=== PATIENT | female | born 1975 | race African-American/Black ===

== ENCOUNTER → 2017-10-04 | Outpatient (CLI) | payer OTHER ==
[~2017-10-04] MED LIST: HCTZ
== END | disposition home or self-care (01) ==
LOC: RADPV 12:34
PROVIDERS: ATTEND Internal Medicine Cardiovascular Disease
DX: I11.0 Hypertensive heart disease with heart failure (principal); I50.9 Heart failure, unspecified; E11.8 Type 2 diabetes mellitus with unspecified complications; E55.9 Vitamin D deficiency, unspecified; D56.5 Hemoglobin E-beta thalassemia

== ENCOUNTER 2018-07-26 15:00 | Emergency (ER) | payer OTHER ==
[~2018-07-26] VITALS: Ht 154.9 cm; Wt 68.2 kg
[2018-07-26] MEDS ORDERED: LISI1TAB11 PO (15:11)
[2018-07-26] MEDS: ASPIRIN 81 MG CHEWABLE TABLET PO ONE (16:05)
[2018-07-26] MEDS: KETOROLAC TROMETHAMINE 30 MG/ML VIAL IVP ONE (16:05)
[2018-07-26 16:20] LABS: BASOPHILS % (AUTO) 0.7 % (0.0-2.0); EOSINOPHILS % (AUTO) 0.7 % (1.0-6.0); HEMATOCRIT 38.6 % (36-46); HEMOGLOBIN 13.1 g/dL (12.0-16.0); LYMPHOCYTES # (AUTO) 1.8 K/uL (1.0-4.8); LYMPHOCYTES % (AUTO) 22.8 % (22.0-44.0); MEAN CORPUSCULAR HGB CONC 33.9 G/dL (31.0-37.0); MEAN CORPUSCULAR VOLUME 94 fL (80-100); MONOCYTES # (AUTO) 0.5 K/uL (0.1-1.0); MONOCYTES % (AUTO) 7.1 % (2.0-9.0); NEUTROPHILS # (AUTO) 5.3 K/uL (1.8-7.7); NEUTROPHILS % (AUTO) 68.7 % (40.0-70.0); PLATELET COUNT (AUTO) 240 K/uL (150-450); RED BLOOD CELL COUNT(AUTO) 4.09 MIL/uL (4.00-5.20); RED CELL DISTRIBUTION WIDTH 14.1 % (11.5-14.5)
[2018-07-26 16:31] LABS: ANION GAP 9 mmol/L (8-16); CALCIUM, TOTAL 9.3 mg/dL (8.8-10.5); CARBON DIOXIDE 27 mmol/L (22-29); CHLORIDE 102 mmol/L (98-107); GLOMERULAR FILTR. RATE CALC > 60 mL/min (>60); GLUCOSE,RANDOM 88 mg/dL (70-110); POTASSIUM 3.1 mmol/L (3.5-5.1); SODIUM SERUM 138 mmol/L (136-145); UREA NITROGEN, BLOOD 10 mg/dL (7-18)
[2018-07-26 16:37] LABS: APPEARANCE,URINE CLOUDY (CLEAR); BILIRUBIN,URINE NEGATIVE (NEGATIVE); GLUCOSE, URINE (UA) NEGATIVE (NEGATIVE); KETONES,URINE NEGATIVE (NEGATIVE); LEUKOCYTE ESTERASE ,URINE MODERATE (NEGATIVE); NITRATE,URINE NEGATIVE (NEGATIVE); OCCULT BLOOD,URINE SMALL (NEGATIVE); PROTEIN,URINE NEGATIVE (NEGATIVE); UROBILINOGEN,URINE 0.2 mg/dL (<=1.0)
[2018-07-26 16:51] LABS: B-TYPE NATRIURETIC PEPTIDE 9 pg/mL (0-100)
[2018-07-26 16:52] LABS: BACTERIA,URINE Moderate /HPF (None Seen); RBC,URINE 0-2 /HPF (0-2); SQUAMOUS EPITHELIAL CELL,UR Moderate /LPF (None Seen); WBC,URINE 26-50 /HPF (0-5)
[2018-07-26 16:56] LABS: ALANINE AMINOTRANSFERASE 36 U/L (12-78); ALBUMIN 3.9 g/dL (3.4-5.0); ALKALINE PHOSPHATASE 79 U/L (46-116); ASPARTATE AMINOTRANSFERASE 33 U/L (15-37); BILIRUBIN,TOTAL 0.5 mg/dL (0.1-1.0); CREATINE KINASE, TOTAL ONLY 459 U/L (26-192); TOTAL PROTEIN, SERUM 7.2 g/dL (6.4-8.2)
[2018-07-26 18:38] VITALS: BP 138/88
== END 2018-07-26 18:39 | disposition home or self-care (01) ==
LOC: EMS 15:01
DX: S29.011A Strain of muscle and tendon of front wall of thorax, initial encounter (principal); I10 Essential (primary) hypertension; A59.9 Trichomoniasis, unspecified; Z79.899 Other long term (current) drug therapy; X50.9XXA Other and unspecified overexertion or strenuous movements or postures, initial encounter; Y93.89 Activity, other specified; Y92.89 Other specified places as the place of occurrence of the external cause; Y99.8 Other external cause status
CPT/HCPCS: 36415; 71045; 80053; 81001; 81025; 82550; 83880; 84484; 85025; 87086; 93005; 96374; 99285; J1885

== ENCOUNTER 2019-09-16 16:26 | Emergency (ER) | payer OTHER ==
[~2019-09-16] VITALS: Ht 156.2 cm; Wt 70.5 kg
[~2019-09-16 16:26] MED LIST changes: -HCTZ; +LISI1TAB11 PO
[2019-09-16] MEDS ORDERED: IBUPROFEN 800 MG TABLET PO ONE (16:45)
[2019-09-16 19:03] VITALS: BP 189/113
== END 2019-09-16 19:38 | disposition home or self-care (01) ==
LOC: EMS 16:26
DX: M79.672 Pain in left foot (principal); I10 Essential (primary) hypertension; R20.0 Anesthesia of skin; R20.2 Paresthesia of skin; F17.210 Nicotine dependence, cigarettes, uncomplicated; F12.90 Cannabis use, unspecified, uncomplicated; Z79.899 Other long term (current) drug therapy
CPT/HCPCS: 99406

== ENCOUNTER 2021-03-10 11:34 | Emergency (ER) | payer OTHER ==
[~2021-03-10] VITALS: Ht 157.5 cm; Wt 65.5 kg
[2021-03-10 12:27] LABS: EOSINOPHILS % (AUTO) 0.6 % (1.0-6.0); HEMATOCRIT 36.6 % (36-46); HEMOGLOBIN 12.2 g/dL (12.0-16.0); LYMPHOCYTES # (AUTO) 1.5 K/uL (1.0-4.8); LYMPHOCYTES % (AUTO) 20.4 % (22.0-44.0); MEAN CORPUSCULAR HEMOGLOBIN 30.1 pg (26.0-34.0); MEAN CORPUSCULAR HGB CONC 33.2 G/dL (31.0-37.0); MEAN CORPUSCULAR VOLUME 91 fL (80-100); MONOCYTES # (AUTO) 0.6 K/uL (0.1-1.0); MONOCYTES % (AUTO) 8.9 % (2.0-9.0); NEUTROPHILS % (AUTO) 69.1 % (40.0-70.0); PLATELET COUNT (AUTO) 287 K/uL (150-450); RED BLOOD CELL COUNT(AUTO) 4.04 MIL/uL (4.00-5.20); RED CELL DISTRIBUTION WIDTH 15.6 % (11.5-14.5)
[2021-03-10 12:28] LABS: APPEARANCE,URINE CLEAR (CLEAR); GLUCOSE, URINE (UA) 100 mg/dL (NEGATIVE); KETONES,URINE TRACE mg/dL (NEGATIVE); LEUKOCYTE ESTERASE ,URINE NEGATIVE (NEGATIVE); NITRATE,URINE NEGATIVE (NEGATIVE); OCCULT BLOOD,URINE TRACE (NEGATIVE); PH,URINE 6.5 (5.0-8.0); PROTEIN,URINE POS 1+ (NEGATIVE)
[2021-03-10 12:29] LABS: BILIRUBIN,URINE PRELIM. POSITIVE (NEGATIVE)
[2021-03-10 12:32] LABS: RBC,URINE 0-2 /HPF (0-2); WBC,URINE None Seen /HPF (0-5)
[2021-03-10 12:33] LABS: BACTERIA,URINE None Seen /HPF (None Seen)
[2021-03-10 12:43] LABS: ANION GAP 11 mmol/L (8-16); CALCIUM, TOTAL 9.9 mg/dL (8.8-10.5); CARBON DIOXIDE 29 mmol/L (22-29); CHLORIDE 101 mmol/L (98-107); GLOMERULAR FILTR. RATE CALC > 60 mL/min (>60); GLUCOSE,RANDOM 106 mg/dL (70-110); POTASSIUM 3.2 mmol/L (3.5-5.1); SODIUM SERUM 141 mmol/L (136-145); UREA NITROGEN, BLOOD 13 mg/dL (7-18)
[2021-03-10 12:56] LABS: ALANINE AMINOTRANSFERASE 23 U/L (12-78); ALBUMIN 4.3 g/dL (3.4-5.0); ALKALINE PHOSPHATASE 96 U/L (46-116); ASPARTATE AMINOTRANSFERASE 25 U/L (15-37); BILIRUBIN,TOTAL 0.7 mg/dL (0.1-1.0); HCG,QUANTITATIVE < 1 mIU/mL (0-6); TOTAL PROTEIN, SERUM 8.2 g/dL (6.4-8.2)
[2021-03-10 14:26] VITALS: BP 163/90
== END 2021-03-10 14:37 | disposition home or self-care (01) ==
LOC: EMS 11:37
DX: N93.8 Other specified abnormal uterine and vaginal bleeding (principal); D21.9 Benign neoplasm of connective and other soft tissue, unspecified; I10 Essential (primary) hypertension; R61 Generalized hyperhidrosis; F17.210 Nicotine dependence, cigarettes, uncomplicated; F12.90 Cannabis use, unspecified, uncomplicated; Z79.899 Other long term (current) drug therapy
CPT/HCPCS: 76856; 80053; 81001; 84702; 85025; 99284

== ENCOUNTER 2022-07-15 17:30 | Inpatient (IN) | payer OTHER ==
[~2022-07-15] VITALS: Ht 152.4 cm; Wt 73.5 kg
[~2022-07-15 17:30] MED LIST changes: +LISI-659 PO; -LISI1TAB11 PO
[2022-07-15 19:00] VITALS: BP 119/79
[2022-07-15] MEDS ORDERED: MELATONIN 3 MG TABLET PO PRN (20:45)
[2022-07-15] MEDS ORDERED: ONDANSETRON HCL 4 MG TABLET PO PRN (20:45)
[2022-07-15] MEDS ORDERED: BACLOFEN 10 MG TABLET PO PRN (20:45)
[2022-07-15] MEDS ORDERED: ACETAMINOPHEN 325 MG TABLET PO PRN (20:45)
[2022-07-15] MEDS: ATORVASTATIN CALCIUM 40 MG TABLET PO SCH (20:55)
[2022-07-15] MEDS: SENNOSIDES 8.6 MG TABLET PO SCH (20:56)
[2022-07-15] MEDS: CLOPIDOGREL BISULFATE 75 MG TABLET PO SCH (20:56)
[2022-07-15] MEDS: DOCUSATE SODIUM 100 MG CAPSULE PO SCH (20:56)
[2022-07-15] MEDS: ETHYL ALCOHOL 62% ANTISEPTIC NASAL SANITIZER 0.6 ML AMPUL NASAL SCH (20:56)
[2022-07-16 06:13] VITALS: BP 121/82
[2022-07-16 08:05] VITALS: BP 104/67
[2022-07-16] MEDS: MULTIVITAMINS WITH MINERALS, THERAPEUTIC TABLET PO SCH (08:15)
[2022-07-16] MEDS: FOLIC ACID 1 MG TABLET PO SCH (08:15)
[2022-07-16] MEDS: ETHYL ALCOHOL 62% ANTISEPTIC NASAL SANITIZER 0.6 ML AMPUL NASAL SCH ×2 (08:15→21:03)
[2022-07-16] MEDS: NIFEdipine 60 MG ER TABLET PO SCH (08:16)
[2022-07-16] MEDS: DOCUSATE SODIUM 100 MG CAPSULE PO SCH ×2 (08:16→21:04)
[2022-07-16] MEDS: ASPIRIN 81 MG CHEWABLE TABLET PO SCH (08:16)
[2022-07-16] MEDS: LISINOPRIL 20 MG TABLET PO SCH (08:16)
[2022-07-16 09:22] LABS: BASOPHILS % (AUTO) 0.5 % (0.0-2.0); EOSINOPHILS % (AUTO) 2.8 % (1.0-6.0); HEMATOCRIT 30.4 % (36-46); HEMOGLOBIN 9.8 g/dL (12.0-16.0); LYMPHOCYTES # (AUTO) 1.1 K/uL (1.0-4.8); MEAN CORPUSCULAR HEMOGLOBIN 29.7 pg (26.0-34.0); MEAN CORPUSCULAR HGB CONC 32.2 G/dL (31.0-37.0); MEAN CORPUSCULAR VOLUME 92 fL (80-100); MONOCYTES # (AUTO) 0.7 K/uL (0.1-1.0); MONOCYTES % (AUTO) 9.7 % (2.0-9.0); NEUTROPHILS # (AUTO) 4.8 K/uL (1.8-7.7); PLATELET COUNT (AUTO) 287 K/uL (150-450)
[2022-07-16 09:53] LABS: ALANINE AMINOTRANSFERASE 27 U/L (12-78); ALBUMIN 3.3 g/dL (3.4-5.0); ALKALINE PHOSPHATASE 91 U/L (46-116); ANION GAP 7 mmol/L (8-16); ASPARTATE AMINOTRANSFERASE 26 U/L (15-37); BILIRUBIN,TOTAL 0.2 mg/dL (0.1-1.0); CALCIUM, TOTAL 8.7 mg/dL (8.8-10.5); CARBON DIOXIDE 27 mmol/L (22-29); CHLORIDE 102 mmol/L (98-107); CREATININE 1.01 mg/dL (0.60-1.30); GLOMERULAR FILTR. RATE CALC > 60 mL/min (>60); GLUCOSE,RANDOM 104 mg/dL (70-110); POTASSIUM 4.1 mmol/L (3.5-5.1); SODIUM SERUM 136 mmol/L (136-145); TOTAL PROTEIN, SERUM 6.4 g/dL (6.4-8.2); UREA NITROGEN, BLOOD 11 mg/dL (7-18)
[2022-07-16] MEDS: ENOXAPARIN SODIUM 40 MG/0.4 ML PF SYRINGE SQ SCH (11:47)
[2022-07-16 20:00] VITALS: BP 138/75
[2022-07-16] MEDS: ATORVASTATIN CALCIUM 40 MG TABLET PO SCH (21:04)
[2022-07-16] MEDS: CLOPIDOGREL BISULFATE 75 MG TABLET PO SCH (21:04)
[2022-07-16] MEDS: SENNOSIDES 8.6 MG TABLET PO SCH (21:10)
[2022-07-17] MEDS: ENOXAPARIN SODIUM 40 MG/0.4 ML PF SYRINGE SQ SCH (07:48)
[2022-07-17] MEDS: ETHYL ALCOHOL 62% ANTISEPTIC NASAL SANITIZER 0.6 ML AMPUL NASAL SCH ×2 (07:50→20:59)
[2022-07-17] MEDS: FOLIC ACID 1 MG TABLET PO SCH (07:51)
[2022-07-17] MEDS: LISINOPRIL 20 MG TABLET PO SCH (07:51)
[2022-07-17] MEDS: ASPIRIN 81 MG CHEWABLE TABLET PO SCH (07:52)
[2022-07-17] MEDS: NIFEdipine 60 MG ER TABLET PO SCH (07:53)
[2022-07-17] MEDS: DOCUSATE SODIUM 100 MG CAPSULE PO SCH ×2 (07:54→20:59)
[2022-07-17] MEDS: MULTIVITAMINS WITH MINERALS, THERAPEUTIC TABLET PO SCH (07:54)
[2022-07-17 08:05] VITALS: BP 131/74
[2022-07-17 20:44] VITALS: BP 136/75
[2022-07-17] MEDS: ATORVASTATIN CALCIUM 40 MG TABLET PO SCH (20:59)
[2022-07-17] MEDS: CLOPIDOGREL BISULFATE 75 MG TABLET PO SCH (20:59)
[2022-07-17] MEDS: SENNOSIDES 8.6 MG TABLET PO SCH (20:59)
[2022-07-18] MEDS: ETHYL ALCOHOL 62% ANTISEPTIC NASAL SANITIZER 0.6 ML AMPUL NASAL SCH ×2 (07:18→20:59)
[2022-07-18] MEDS: ASPIRIN 81 MG CHEWABLE TABLET PO SCH (07:18)
[2022-07-18] MEDS: LISINOPRIL 20 MG TABLET PO SCH (07:19)
[2022-07-18] MEDS: NIFEdipine 60 MG ER TABLET PO SCH (07:19)
[2022-07-18] MEDS: DOCUSATE SODIUM 100 MG CAPSULE PO SCH ×2 (07:19→20:58)
[2022-07-18] MEDS: MULTIVITAMINS WITH MINERALS, THERAPEUTIC TABLET PO SCH (07:19)
[2022-07-18] MEDS: FOLIC ACID 1 MG TABLET PO SCH (07:19)
[2022-07-18] MEDS: ENOXAPARIN SODIUM 40 MG/0.4 ML PF SYRINGE SQ SCH (07:20)
[2022-07-18 08:40] VITALS: BP 135/83
[2022-07-18 20:10] VITALS: BP 141/88
[2022-07-18] MEDS: ATORVASTATIN CALCIUM 40 MG TABLET PO SCH (20:59)
[2022-07-18] MEDS: CLOPIDOGREL BISULFATE 75 MG TABLET PO SCH (20:59)
[2022-07-18] MEDS: SENNOSIDES 8.6 MG TABLET PO SCH (20:59)
[2022-07-19 08:30] VITALS: BP 157/104
[2022-07-19] MEDS: MULTIVITAMINS WITH MINERALS, THERAPEUTIC TABLET PO SCH (08:41)
[2022-07-19] MEDS: FOLIC ACID 1 MG TABLET PO SCH (08:41)
[2022-07-19] MEDS: NIFEdipine 60 MG ER TABLET PO SCH (08:42)
[2022-07-19] MEDS: DOCUSATE SODIUM 100 MG CAPSULE PO SCH ×2 (08:42→20:37)
[2022-07-19] MEDS: ASPIRIN 81 MG CHEWABLE TABLET PO SCH (08:42)
[2022-07-19] MEDS: LISINOPRIL 20 MG TABLET PO SCH (08:42)
[2022-07-19] MEDS: ETHYL ALCOHOL 62% ANTISEPTIC NASAL SANITIZER 0.6 ML AMPUL NASAL SCH ×2 (08:42→20:33)
[2022-07-19] MEDS: ENOXAPARIN SODIUM 40 MG/0.4 ML PF SYRINGE SQ SCH (08:43)
[2022-07-19 11:35] VITALS: BP 150/95
[2022-07-19] MEDS ORDERED: AmLODIPine BESYLATE 5 MG TABLET PO SCH (12:00)
[2022-07-19] MEDS: ESCITALOPRAM OXALATE 10 MG TABLET PO SCH (13:15)
[2022-07-19] MEDS: BACLOFEN 10 MG TABLET PO SCH ×2 (17:10→20:32)
[2022-07-19 20:00] VITALS: BP 133/84
[2022-07-19] MEDS: ATORVASTATIN CALCIUM 40 MG TABLET PO SCH (20:32)
[2022-07-19] MEDS: CLOPIDOGREL BISULFATE 75 MG TABLET PO SCH (20:32)
[2022-07-19] MEDS: SENNOSIDES 8.6 MG TABLET PO SCH (20:38)
[2022-07-20 08:02] VITALS: BP 134/89
[2022-07-20] MEDS: MULTIVITAMINS WITH MINERALS, THERAPEUTIC TABLET PO SCH (08:05)
[2022-07-20] MEDS: ENOXAPARIN SODIUM 40 MG/0.4 ML PF SYRINGE SQ SCH (08:05)
[2022-07-20] MEDS: ASPIRIN 81 MG CHEWABLE TABLET PO SCH (08:05)
[2022-07-20] MEDS: ESCITALOPRAM OXALATE 10 MG TABLET PO SCH (08:06)
[2022-07-20] MEDS: BACLOFEN 10 MG TABLET PO SCH ×3 (08:06→20:00)
[2022-07-20] MEDS: NIFEdipine 90 MG ER TABLET PO SCH (08:06)
[2022-07-20] MEDS: LISINOPRIL 20 MG TABLET PO SCH (08:06)
[2022-07-20] MEDS: FOLIC ACID 1 MG TABLET PO SCH (08:06)
[2022-07-20] MEDS: DOCUSATE SODIUM 100 MG CAPSULE PO SCH ×2 (08:07→20:00)
[2022-07-20] MEDS: ETHYL ALCOHOL 62% ANTISEPTIC NASAL SANITIZER 0.6 ML AMPUL NASAL SCH ×2 (08:12→20:00)
[2022-07-20] MEDS: ATORVASTATIN CALCIUM 40 MG TABLET PO SCH (20:00)
[2022-07-20] MEDS: CLOPIDOGREL BISULFATE 75 MG TABLET PO SCH (20:00)
[2022-07-20] MEDS: SENNOSIDES 8.6 MG TABLET PO SCH (20:01)
[2022-07-20 21:00] VITALS: BP 143/85
[2022-07-21] MEDS: ETHYL ALCOHOL 62% ANTISEPTIC NASAL SANITIZER 0.6 ML AMPUL NASAL SCH ×2 (08:09→21:05)
[2022-07-21] MEDS: ENOXAPARIN SODIUM 40 MG/0.4 ML PF SYRINGE SQ SCH (08:09)
[2022-07-21] MEDS: LISINOPRIL 20 MG TABLET PO SCH (08:10)
[2022-07-21] MEDS: DOCUSATE SODIUM 100 MG CAPSULE PO SCH ×2 (08:10→21:03)
[2022-07-21] MEDS: BACLOFEN 10 MG TABLET PO SCH ×3 (08:10→21:04)
[2022-07-21] MEDS: NIFEdipine 90 MG ER TABLET PO SCH (08:10)
[2022-07-21] MEDS: FOLIC ACID 1 MG TABLET PO SCH (08:10)
[2022-07-21] MEDS: MULTIVITAMINS WITH MINERALS, THERAPEUTIC TABLET PO SCH (08:10)
[2022-07-21] MEDS: ESCITALOPRAM OXALATE 10 MG TABLET PO SCH (08:10)
[2022-07-21] MEDS: ASPIRIN 81 MG CHEWABLE TABLET PO SCH (08:11)
[2022-07-21 12:05] VITALS: BP 140/90
[2022-07-21 20:45] VITALS: BP 148/62
[2022-07-21] MEDS: CLOPIDOGREL BISULFATE 75 MG TABLET PO SCH (21:03)
[2022-07-21] MEDS: ATORVASTATIN CALCIUM 40 MG TABLET PO SCH (21:03)
[2022-07-21] MEDS: SENNOSIDES 8.6 MG TABLET PO SCH (21:03)
[2022-07-22 07:42] LABS: BASOPHILS % (AUTO) 1.3 % (0.0-2.0); EOSINOPHILS % (AUTO) 2.8 % (1.0-6.0); HEMOGLOBIN 10.9 g/dL (12.0-16.0); LYMPHOCYTES # (AUTO) 1.4 K/uL (1.0-4.8); LYMPHOCYTES % (AUTO) 21.3 % (22.0-44.0); MEAN CORPUSCULAR HEMOGLOBIN 30.3 pg (26.0-34.0); MEAN CORPUSCULAR HGB CONC 32.9 G/dL (31.0-37.0); MEAN CORPUSCULAR VOLUME 92 fL (80-100); MONOCYTES # (AUTO) 0.5 K/uL (0.1-1.0); MONOCYTES % (AUTO) 7.7 % (2.0-9.0); NEUTROPHILS # (AUTO) 4.4 K/uL (1.8-7.7); NEUTROPHILS % (AUTO) 66.9 % (40.0-70.0); PLATELET COUNT (AUTO) 344 K/uL (150-450); RED BLOOD CELL COUNT(AUTO) 3.58 MIL/uL (4.00-5.20); RED CELL DISTRIBUTION WIDTH 15.6 % (11.5-14.5)
[2022-07-22 07:49] LABS: ANION GAP 9 mmol/L (8-16); CALCIUM, TOTAL 8.6 mg/dL (8.8-10.5); CARBON DIOXIDE 27 mmol/L (22-29); CHLORIDE 104 mmol/L (98-107); CREATININE 0.89 mg/dL (0.60-1.30); GLOMERULAR FILTR. RATE CALC > 60 mL/min (>60); GLUCOSE,RANDOM 96 mg/dL (70-110); POTASSIUM 3.9 mmol/L (3.5-5.1); SODIUM SERUM 140 mmol/L (136-145); UREA NITROGEN, BLOOD 10 mg/dL (7-18)
[2022-07-22 08:10] VITALS: BP 132/91
[2022-07-22] MEDS: ASPIRIN 81 MG CHEWABLE TABLET PO SCH (09:22)
[2022-07-22] MEDS: ESCITALOPRAM OXALATE 10 MG TABLET PO SCH (09:22)
[2022-07-22] MEDS: FOLIC ACID 1 MG TABLET PO SCH (09:22)
[2022-07-22] MEDS: DOCUSATE SODIUM 100 MG CAPSULE PO SCH ×2 (09:22→20:52)
[2022-07-22] MEDS: ETHYL ALCOHOL 62% ANTISEPTIC NASAL SANITIZER 0.6 ML AMPUL NASAL SCH ×2 (09:22→20:52)
[2022-07-22] MEDS: MULTIVITAMINS WITH MINERALS, THERAPEUTIC TABLET PO SCH (09:23)
[2022-07-22] MEDS: BACLOFEN 10 MG TABLET PO SCH ×3 (09:23→20:52)
[2022-07-22] MEDS: NIFEdipine 90 MG ER TABLET PO SCH (09:23)
[2022-07-22] MEDS: LISINOPRIL 20 MG TABLET PO SCH (09:23)
[2022-07-22 20:00] VITALS: BP 136/75
[2022-07-22] MEDS: ATORVASTATIN CALCIUM 40 MG TABLET PO SCH (20:52)
[2022-07-22] MEDS: CLOPIDOGREL BISULFATE 75 MG TABLET PO SCH (20:52)
[2022-07-22] MEDS: SENNOSIDES 8.6 MG TABLET PO SCH (20:52)
[2022-07-23 08:05] VITALS: BP 154/98
[2022-07-23] MEDS: DOCUSATE SODIUM 100 MG CAPSULE PO SCH ×2 (08:15→20:14)
[2022-07-23] MEDS: FOLIC ACID 1 MG TABLET PO SCH (08:15)
[2022-07-23] MEDS: ETHYL ALCOHOL 62% ANTISEPTIC NASAL SANITIZER 0.6 ML AMPUL NASAL SCH ×2 (08:15→20:16)
[2022-07-23] MEDS: ASPIRIN 81 MG CHEWABLE TABLET PO SCH (08:15)
[2022-07-23] MEDS: ESCITALOPRAM OXALATE 10 MG TABLET PO SCH (08:15)
[2022-07-23] MEDS: NIFEdipine 90 MG ER TABLET PO SCH (08:16)
[2022-07-23] MEDS: MULTIVITAMINS WITH MINERALS, THERAPEUTIC TABLET PO SCH (08:16)
[2022-07-23] MEDS: BACLOFEN 10 MG TABLET PO SCH ×3 (08:16→20:14)
[2022-07-23] MEDS: LISINOPRIL 20 MG TABLET PO SCH (08:16)
[2022-07-23 09:30] VITALS: BP 152/98
[2022-07-23 20:12] VITALS: BP 135/80
[2022-07-23] MEDS: SENNOSIDES 8.6 MG TABLET PO SCH (20:14)
[2022-07-23] MEDS: ATORVASTATIN CALCIUM 40 MG TABLET PO SCH (20:14)
[2022-07-23] MEDS: CLOPIDOGREL BISULFATE 75 MG TABLET PO SCH (20:14)
[2022-07-24] MEDS ORDERED: NIFE90TA91 PO ×2 (00:48→10:40)
[2022-07-24] MEDS ORDERED: BACL10TA PO ×2 (00:48→10:40)
[2022-07-24] MEDS ORDERED: DOCU-385 PO ×2 (00:48→10:40)
[2022-07-24] MEDS ORDERED: CLOP75TA60 PO ×2 (00:48→10:40)
[2022-07-24] MEDS ORDERED: ATOR40TA28 PO (00:48)
[2022-07-24] MEDS ORDERED: FOLI-130 PO ×2 (00:48→10:40)
[2022-07-24] MEDS ORDERED: LISI-894 PO ×2 (00:48→10:40)
[2022-07-24] MEDS ORDERED: MULT-248 PO (00:48)
[2022-07-24] MEDS ORDERED: ASPI-1450 PO (00:48)
[2022-07-24] MEDS ORDERED: ESCI-8 PO (00:48)
[2022-07-24 08:45] VITALS: BP 155/94
[2022-07-24] MEDS: ASPIRIN 81 MG CHEWABLE TABLET PO SCH (08:56)
[2022-07-24] MEDS: DOCUSATE SODIUM 100 MG CAPSULE PO SCH ×2 (08:57→20:49)
[2022-07-24] MEDS: ETHYL ALCOHOL 62% ANTISEPTIC NASAL SANITIZER 0.6 ML AMPUL NASAL SCH ×2 (08:57→20:49)
[2022-07-24] MEDS: ESCITALOPRAM OXALATE 10 MG TABLET PO SCH (08:57)
[2022-07-24] MEDS: LISINOPRIL 20 MG TABLET PO SCH (08:57)
[2022-07-24] MEDS: BACLOFEN 10 MG TABLET PO SCH ×3 (08:57→20:49)
[2022-07-24] MEDS: MULTIVITAMINS WITH MINERALS, THERAPEUTIC TABLET PO SCH (08:57)
[2022-07-24] MEDS: NIFEdipine 90 MG ER TABLET PO SCH (08:58)
[2022-07-24] MEDS: FOLIC ACID 1 MG TABLET PO SCH (08:58)
[2022-07-24] MEDS ORDERED: ASPI81 PO (10:40)
[2022-07-24] MEDS ORDERED: ATOR40TA71 PO (10:40)
[2022-07-24] MEDS ORDERED: ESCI10 PO (10:40)
[2022-07-24] MEDS ORDERED: MULT-1239 PO (10:40)
[2022-07-24 20:00] VITALS: BP 118/84
[2022-07-24] MEDS: SENNOSIDES 8.6 MG TABLET PO SCH (20:49)
[2022-07-24] MEDS: CLOPIDOGREL BISULFATE 75 MG TABLET PO SCH (20:49)
[2022-07-24] MEDS: ATORVASTATIN CALCIUM 40 MG TABLET PO SCH (20:49)
[2022-07-25 08:26] VITALS: BP 124/76
[2022-07-25] MEDS: ETHYL ALCOHOL 62% ANTISEPTIC NASAL SANITIZER 0.6 ML AMPUL NASAL SCH (08:48)
[2022-07-25] MEDS: DOCUSATE SODIUM 100 MG CAPSULE PO SCH (08:49)
[2022-07-25] MEDS: FOLIC ACID 1 MG TABLET PO SCH (08:49)
[2022-07-25] MEDS: ASPIRIN 81 MG CHEWABLE TABLET PO SCH (08:49)
[2022-07-25] MEDS: ESCITALOPRAM OXALATE 10 MG TABLET PO SCH (08:49)
[2022-07-25] MEDS: MULTIVITAMINS WITH MINERALS, THERAPEUTIC TABLET PO SCH (08:50)
[2022-07-25] MEDS: NIFEdipine 90 MG ER TABLET PO SCH (08:50)
[2022-07-25] MEDS: BACLOFEN 10 MG TABLET PO SCH (08:50)
[2022-07-25] MEDS: LISINOPRIL 20 MG TABLET PO SCH (08:50)
== END 2022-07-25 10:30 | disposition home health service (06) | DRG 45 ==
LOC: 2WR 18:40
PROVIDERS: ADMIT Physical Medicine & Rehabilitation; ATTEND Physical Medicine & Rehabilitation
DX: I63.9 Cerebral infarction, unspecified (principal); E46 Unspecified protein-calorie malnutrition; G81.94 Hemiplegia, unspecified affecting left nondominant side; R47.01 Aphasia; D64.9 Anemia, unspecified; I10 Essential (primary) hypertension; F17.210 Nicotine dependence, cigarettes, uncomplicated; F41.9 Anxiety disorder, unspecified; R13.10 Dysphagia, unspecified; R47.1 Dysarthria and anarthria; E78.5 Hyperlipidemia, unspecified; R41.89 Other symptoms and signs involving cognitive functions and awareness; Z80.3 Family history of malignant neoplasm of breast; Z68.31 Body mass index [BMI] 31.0-31.9, adult; Z79.899 Other long term (current) drug therapy; Z82.49 Family history of ischemic heart disease and other diseases of the circulatory system; Z83.3 Family history of diabetes mellitus
CPT/HCPCS: 80048; 80053; 85025; 87081; 92507; 92523; 92526; 92610; 97110; 97112; 97116; 97163; 97530; 97535; 97760; 99366; J1650